=== PATIENT | male | born 1980 | race Two or more races ===

== ENCOUNTER 2022-07-19 17:38 | Emergency (ER) | payer SELFPAY ==
--- NOTE | ~2022-07-19 | XR_ITS ---
EXAMINATION: XR chest 2V Exam Date/Time: 07/19/2022 19:40 CDT HISTORY: weakness H/A INSOMNIA X 1 WK Comparison: None available. RESULT: Lines, tubes, and devices: None. Lungs and pleura: Biapical pleural scarring. Mild cuffing and reticulonodular opacities. Left latera l costophrenic angle blunting. Cardiomediastinal silhouette: Stable. Other: No acute osseous or upper abdominal finding. IMPRESSION: Pulmonary opacities may represent bronchiolitis, as can be seen with atypical infection, asthma, aspi ration, and small airways disease.Chronic left lateral pleural parenchymal scarring versus small effu desirae. Reviewed, dictated and finalized at location K. IMPRESSION: Pulmonary opacities may represent bronchiolitis, as can be seen with atypical i nfection, asthma, aspiration, and small airways disease.Chronic left lateral pl eural parenchymal scarring versus small effusion.
[2022-07-19 17:40] VITALS: BP 141/79; PULSE 80; RESP 16; TEMP 37.4; O2SAT 99
--- NOTE | 2022-07-19 17:44 | ECG_ITS ---
Measurements Intervals [place] Rate: 77 P: 78 LA: 149 QRS: 67 QRSD: 88 T: 58 QT: 365 QTc: 415 Interpretive Statements SINUS RHYTHM MINIMAL Q WAVES- INF/LAT LEADS BASELINE ARTIFACT- I, II, AVR, AVL, AVF BORDERLINE ECG NO PREVIOUS ECG AVAILABLE FOR COMPARISON Electronically Signed On 07-19-2022 21:32:20 CDT by Jamar Kerr D.O.
[2022-07-19 18:08] LABS: Basophils Absolute Auto 0.1 K/mm3 (0.0-0.1); Basophils Percent Auto 0.6 % (0.2-1.2); Eosinophils Absolute Auto 0.2 K/mm3 (0-0.3); Eosinophils Percent Auto 2.9 % (0-4.4); Hematocrit 42.4 % (42.0-52.0); Hemoglobin 14.3 g/dL (14.0-18.0); Immature Granulocyte Absolute 0.02 K/mm3 (0.00-0.031); Immature Granulocyte Percent A 0.2 % (0-0.5); Lymphocytes Absolute Auto 2.83 K/mm3 (0.9-3.2); Lymphocytes Percent Auto 34.8 % (18.3-44.2); Mean Corpuscular HGB Conc 33.7 g/dl (32-36); Mean Corpuscular Volume 88.9 fl (80-100); Mean Platelet Volume 9.1 fl (7.4-10.4); Monocytes Absolute Auto 0.7 K/mm3 (0.1-0.6); Monocytes Percent Auto 8.2 % (2.6-8.5); Neutrophils Absolute Auto 4.3 K/mm3 (1.3-6.7); Neutrophils Percent Auto 53.3 % (45.5-73.1); Platelet Count Result 241 k/mm3 (150-375); Red Blood Count 4.77 M/mm3 (4.6-6.20); Red Cell Distribution Width 12.8 % (11.5-14.5); White Blood Count 8.1 K/mm3 (4.5-10.0)
[2022-07-19 18:14] LABS: Appearance Urine Clear (Clear); Bilirubin Urine Negative (Negative); Blood Urine Negative (Negative); Color Urine Yellow (Yellow); Glucose Urine UA Negative (Negative); Ketones Urine Negative (Negative); Leukocyte Esterase Ur Negative LEU/UL (Negative); Nitrate Urine Negative (Negative); Protein Urine Negative (Negative); Specific Grav Ur 1.018 (1.001-1.035)
[2022-07-19 18:18] LABS: Alanine Aminotransferase 16 U/L (6-50); Albumin Level 4.7 g/dL (3.5-5.1); Alkaline Phosphatase 58 U/L (38-126); Anion Gap 7 mmol/L (8-16); Aspartate Amino Transferase 24 U/L (17-59); Bilirubin,Total 0.6 mg/dL (0.2-1.3); Blood Urea Nitrogen 16 mg/dL (9-20); Calcium 8.8 mg/dL (8.4-10.2); Carbon Dioxide 29 mmol/L (22-30); Chloride 104 mmol/L (98-107); Estimated CRCL calculation 112 ml/min; Estimated Glomerular Filt Rate > 60; Glucose 89 mg/dL (65-110); Sodium 140 mmol/L (137-145)
[2022-07-19 18:19] LABS: Add Urine Microscopic? NO
--- NOTE | 2022-07-19 20:33 | ED.GENADULT ---
HPI - General Adult General Chief complaint: Weakness Stated complaint: difficulty sleeping Time Seen by Provider: 07/19/22 19:24 History of Present Illness HPI narrative: Czech speaker. Hematology Technician service was used for communication. Triage complaint was listed as weakness but that is not his actual complaint. This is a 41-year-old male presenting ED with multiple complaints. Patient says he has been having trouble sleeping the last week. He is only able to sleep once our and night or so. He says that he is being kept awake because he is having some abdominal discomfort and a bad taste in his mouth. He feels like there is acid in his mouth. He says the pain improves when he sleeps in an arm chair sitting up. Additionally he is getting up to urinate frequently throughout the night. He has to urinate approximately 10 times per night. He denies dysuria but admits to urgency and frequency. He says he does have a history of STDs but he has only had 1 sexual partner in the last month. Patient also says he is constipated. Still passing gas. Patient admits to some depression. He denies suicidal or homicidal ideation. He denies hallucinations. Related Data Allergies Allergy/AdvReac Type Severity Reaction Status Date / Time No Known Allergies Allergy Verified 07/19/22 19:17 [facility] Past Medical History Medical History H/O appendicitis Healthy male adult Social History Social History (Updated 07/19/22 @ 20:36 by Nima Bueno MD) Social History: Occasional alcohol tobacco use. Denies drug use. Exam Narrative: APPEARANCE: No apparent distress. Head: atraumatic. EYES: EOMI, NOSE: Atraumatic NECK: Trachea midline RESPIRATORY: No increased rate of breathing Clear to auscultation bilaterally CARDIOVASCULAR: RRR, no peripheral edema ABDOMINAL: Non-distended, soft nontender no guarding or rebound Genital Exam: no testicular tenderness, normal lie, no lesions or growths MUSCULOSKELETAl: No obvious deformities NEURO: Alert. Moving 4/4 extremities SKIN:: Warm, dry. Normal color PSYCHIATRIC: Normal affect Course Vital Signs Vital signs: Vital Signs Temperature 99.3 F 07/19/22 17:40 Pulse Rate 80 07/19/22 17:40 Respiratory Rate 16 07/19/22 17:40 Blood Pressure 141/79 H 07/19/22 17:40 Pulse Oximetry 99 07/19/22 17:40 Temperature 99.3 F 07/19/22 17:40 Pulse Rate 80 07/19/22 17:40 Respiratory Rate 16 07/19/22 17:40 Blood Pressure 141/79 H 07/19/22 17:40 Pulse Oximetry 99 07/19/22 17:40 Medical Decision Making MDM Narrative Medical decision making narrative: -Presentation: 41-year-old male presenting with multiple minor complaints including insomnia, constipation, GERD and increased urination. He denied a primary care physician. -DDX includes but is not limited to: Insomnia, , UTI, constipation, GERD, STDs -Co-morbidities complicating care: non-Thai speaker, depression -Social determinants of health: patient is unemployed and lives by himself. he is to be a truck mechanic apprentice. -External Chart Review: none -Hx from independent Sources: none -Discussion of Management/Consultants: smart grid engineer service -Independent interpretation of studies: lab work is within normal limits. Urine was not indicative of infection. No evidence of diabetes. chest x-ray showed no Some old scarring but no Cause of his symptoms. Independent EKG interpretation: Rhythm [sinus], Rate [77], [place] -[normal], [place] -[normal], QRS [narrow], QTC [normal], T waves -[negative for concerning inversions], ST Segments - [Negative for concerning elevations] Final interpretations: [Normal Sinus Rhythm] Dx tests considered but not ordered: None -Procedures: none -Interventions: none -Shared decision making / Disposition: After discussing all the patient's symptoms with him in a smart grid engineer over an extended period o
[2022-07-19 21:50] VITALS: BP 106/78; PULSE 78; RESP 16; O2SAT 99
== END 2022-07-19 22:04 | disposition home or self-care (01) ==
PROVIDERS: Emergency Medicine; Emergency Provider Emergency Medicine
DX: K52.9 Noninfective gastroenteritis and colitis, unspecified (principal); K59.00 Constipation, unspecified; G47.00 Insomnia, unspecified
CPT/HCPCS: 36415; 71046; 80053; 81003; 85025; 93005; 99283